=== PATIENT | female | born 1995 | race Caucasian/White ===

== ENCOUNTER → 2021-01-15 16:40 | Outpatient (CLI) | payer OTHER, SELFPAY ==
--- NOTE | ~2021-01-15 | XR_ITS ---
XR foot RT min 3V DATE: 01/15/2021 17:05 INDICATION: Right foot pain TECHNIQUE: 4 views COMPARISON: None FINDINGS: Os tibiale externum, normal variant. No fracture, dislocation, periosteal reaction or bone destruction, erosive change or any significant joint space narrowing. IMPRESSION: Negative Reviewed, dictated and finalized at location B. IMPRESSION: Negative
== END ==
DX: M79.671 Pain in right foot (principal)
CPT/HCPCS: 73630